=== PATIENT | female | born 1985 | race Caucasian/White ===

== ENCOUNTER → 2017-07-28 | Outpatient (CLI) | payer BC ==
--- NOTE | 2017-07-28 11:18 | DIAGNOSTIC IMAGING REPORT ---
ULTRASOUND LEFT CHEST WALL NONVASCULAR CLINICAL HISTORY: Lipoma. COMPARISON STUDY: No priors. FINDINGS: Real-time, grayscale, and color flow sonography of the soft tissues of the left chest wall is performed at the indicated site of interest. In the subcutaneous soft tissues of the chest wall there is a lobulated and well-circumscribed hypoechoic lesion at this site which largely blends into the surrounding subcutaneous fat. This measures 3.7 x 0.7 x 4.2 cm. No internal flow seen on color imaging. IMPRESSION: There is a lobulated well-circumscribed soft tissue lesion at the indicated site of interest which largely blends into the surrounding fat. While pathologically indeterminant the appearance is typical for lipoma. Clinical correlation will be required. Electronically signed by: Hemal Anderson M.D. 07/28/2017 11:17 AM Dictated Date/Time: 07/28/2017 11:15 AM
== END | disposition home or self-care (01) ==
LOC: C.ULTR 10:24
PROVIDERS: ATTEND Internal Medicine
DX: D17.9 Benign lipomatous neoplasm, unspecified (principal)

== ENCOUNTER → 2017-12-26 | Day surgery (SDC) | payer OTHER ==
[2017-12-25 08:42] VITALS: Ht 177.8 cm; Wt 63.6 kg
[~2017-12-26] VITALS: Ht 177.8 cm; Wt 63.6 kg
[~2017-12-26] MED LIST: ATROPINE SULFATE 0.1 MG/ML 5ML SYR IV PRN; BUPIVACAINE 0.5 % 5 MG/1 ML MPF 30ML VIAL ONE; CEFAZOLIN 2000MG IV PUSH 15 ML IV SCH; DEXAMETHASONE SOD INJ 4 MG/ML VIAL ONE; EpHEDrine SULFATE INJ 50 MG/ML AMP IV PRN; FENTANYL CITRATE INJ 50 MCG/1 ML 2 ML VIAL IV PRN; FENTANYL CITRATE INJ 50 MCG/1 ML 2 ML VIAL ONE; LACTATED RINGER'S 1000ML 1,000 ML IV SCH; LIDOCAINE HCL 2% 2 ML VIAL (20MG/ML) ONE; LIDOCAINE/EPINEPHRINE 1% 20 ML VIAL ONE; MIDAZOLAM HCL 1 MG/ML 2ML VIAL ONE; ONDANSETRON INJ 2 MG/ML 2 ML VIAL IV PRN; ONDANSETRON INJ 2 MG/ML 2 ML VIAL ONE; OXYC-57 PO; OXYCODONE/ACETAMINOPHEN 5-325 TAB PO PRN; PROPOFOL IV EMULSION 10 MG/ML 20 ML VIAL IV ONE; SODIUM CHLORIDE 0.9% 1000ML 1,000 ML IV SCH
--- NOTE | 2017-12-26 10:45 | History & Physical Bridge - SC ---
H&P Re-Evaluation Bridge Note: I have examined the patient, reviewed the History & Physical and in the interval since the performance of the History & Physical I have noted the following changes of clinical significance: No changes noted
--- NOTE | 2017-12-26 11:35 | [facility] Post Operative Brief Note ---
Immediate Operative Summary Operative Date Dec 26, 2017. Pre-Operative Diagnosis Supraumbilical Hernia, Left Chest Wall Mass Post-Operative Diagnosis same Procedure(s) Performed Open Repair of Incarcerated Supraumbilical Hernia; Left Chest Wall Mass Excision Surgeon Dr. Jessica Melton Labor Conciliator Surgeon(s) Misty Gifford PA-C Estimated Blood Loss 2cc Findings Consistent with Post-Op Diagnosis Small defect closed primarily. 4 cm subcutaneous lipoma excised. Specimens A. Supraumbilical Hernia sac B. Left Chest Wall Mass Drains None Anesthesia Type MAC Complication(s) none Disposition Accompanied Pt To Recover: no Disposition: Recovery Room / PACU
--- NOTE | 2017-12-26 11:41 | [facility] Operative Report ---
Operative Report Operative Date Dec 26, 2017. Pre-Operative Diagnosis Supraumbilical Hernia, Left Chest Wall Mass Post-Operative Diagnosis same Procedure(s) Performed Open Repair of Incarcerated Supraumbilical Hernia; Left Chest Wall Mass Excision Surgeon Dr. Jessica Melton Chinese Instructor Surgeon(s) Misty Gifford PA-C Estimated Blood Loss 2cc Findings Small defect closed primarily. 4 cm subcutaneous lipoma excised. Specimens A. Supraumbilical Hernia sac B. Left Chest Wall Mass Drains None Anesthesia Type MAC Complication(s) none Disposition no Recovery Room / PACU Indications 32-year-old female with a small but symptomatic incarcerated supraumbilical hernia as well as a left chest wall lipoma, plan for repair of supraumbilical hernia and excision of left chest wall mass. The risks of the procedure were discussed, all questions were answered, and the patient agreed to proceed with surgery as planned. Description of Procedure The patient was properly identified, consented, and taken to the operating room where she was placed in the supine position. Monitored anesthesia care was induced. SCDs and a safety belt were placed. Preoperative antibiotics were administered. The patient's abdomen and lower left chest were prepped and draped in the standard sterile fashion. Surgical timeout was performed and all parties were in agreement that this was the correct patient and procedure to be performed and we continued as planned. A transverse incision was made above the umbilicus overlying the palpable hernia and deepened down to the fascia with blunt dissection. A 1 cm incarcerated and strangulated piece of preperitoneal fat was identified and was excised and passed off the table as specimen. A 7 mm fascial defect was encountered. The fascia anteriorly and posteriorly was cleared of investing tissue for several centimeters. Hemostasis was achieved within the wound. The hernia defect was closed primarily with interrupted 0 Nurolon sutures. The wound was irrigated and hemostasis confirmed. Local anesthetic was injected in the fascia and along the skin incision. The skin was closed with interrupted 3-0 Vicryl deep dermal sutures, followed by 4-0 Monocryl running subcuticular suture. Dermabond was placed over the wound. Attention then turned to the left chest wall soft tissue mass. Local anesthetic was injected along the skin incision. A transverse incision was made overlying the mass and deepened down through the subcutaneous tissue with electrocautery. The mass was circumferentially dissected, excised, and passed off the table as specimen. The mass appeared to be a benign lipoma and was approximately 4 cm in size. The wound was irrigated and hemostasis was confirmed. The skin was closed with interrupted 3-0 Vicryl deep dermal sutures , followed by 4-0 Monocryl running subcuticular suture. Dermabond was placed over the wound. Anesthesia was ceased in the operating room and the patient was taken to the PACU where she recovered without apparent incident. All sponge, instrument and needle counts were correct at the conclusion of the procedure. The patient tolerated the procedure well. The physician's assistant brand manager was present and scrubbed for the entirety of the case. She was essential and positioning the patient, prepping and draping, retraction and exposure, repair the hernia, excision of the lipoma, closure of the incisions, and placement of the dressings. I attest to the content of the Intraoperative Record and any orders documented therein. Any exceptions are noted below.
[2017-12-26 11:45] VITALS: TEMP 36.4
--- NOTE | 2017-12-26 11:49 | Discharge Instructions-SurgCtr ---
Discharge Instructions Date of Service Dec 26, 2017. Visit Reason for Visit: Supraumbilical Hernia; Left Chest Wall Lipoma Discharge Discharge Diagnosis / Problem: Supraumbilical Hernia; Left Chest Wall Lipoma Discharge Goals Goal(s): Decrease discomfort, Improve function Activity Recommendations Activity Limitations: as noted below Lifting Limitations: no more than 10 pounds Exercise/Sports Limitations: until after follow-up appointment May Resume Sexual Activity: after follow-up appointment Shower/Bathe: tomorrow Driving or Machine Use: resume 1 day after discharge Anesthesia . Post Anesthesia Instructions: If you have had General Anesthesia or IV Sedation: * Do not drive today. * Resume driving when surgeon permits. * Do not make important decisions or sign legal documents today. * Call surgeon for: 1. Temperature elevations greater than 101 degrees F. 2. Uncontrollable pain. 3. Excessive bleeding. 4. Persistent nausea and vomiting. 5. Medication intolerance (nausea, vomiting or rash). * For nausea and vomiting use only clear liquids such as: tea, soda, bouillon until nausea subsides, then gradually increase diet as tolerated. * If you have any concerns or questions, call your surgeon's office. If physician is unavailable and it is an emergency, call 911 or go to the nearest emergency room. . Instructions / Follow-Up Instructions / Follow-Up You have surgical glue, Dermabond, over your incisions. You may shower tomorrow , but please do not soak or scrub your incisions. Please follow-up with Dr. Melton in the [facility] Surgery [facility] in 1-2 weeks. Please call the office at [phone] to make an appointment if you do not have one already. Please call the office with any questions or concerns. Diet Recommendations Home Diet: no limitations Procedures Procedures Performed: Open Repair of Incarcerated Supraumbilical Hernia; Left Chest Wall Mass Excision Pending Studies Studies pending at discharge: yes List of pending studies: Pathology report. Medical Emergencies . Who to Call and When: Medical Emergencies: If at any time you feel your situation is an emergency, please call 911 immediately. . Non-Emergent Contact Non-Emergency issues call your: Primary Care Provider, Surgeon Call Non-Emergent contact if: temperature is above 101.5, your pain is not controlled, wound has increased drainage, wound has increased redness . . "Provider Documentation" section prepared by Misty Gifford. .
[2017-12-26 12:22] VITALS: BP 103/69; PULSE 62; O2SAT 100
--- NOTE | 2017-12-26 12:35 | Anesthesia Progress Nt - [facility] ---
Anesthesia Post Op Note Date & Time Dec 26, 2017 at 12:35 Vital Signs Pain Intensity: 0 Vital Signs Past 12 Hours Date Time Temp Pulse Resp B/P (MAP) Pulse Ox O2 Delivery O2 Flow Rate FiO2 12/26/17 12:22 62 16 103/69 (80) 100 Room Air 12/26/17 11:45 36.4 70 16 104/62 (76) 100 Room Air 12/26/17 09:42 36 89 20 118/79 (92) 100 Room Air Notes Mental Status: alert / awake / arousable, participated in evaluation Pt Amnestic to Procedure: Yes Nausea / Vomiting: adequately controlled Pain: adequately controlled Airway Patency, RR, SpO2: stable & adequate BP & HR: stable & adequate Hydration State: stable & adequate Anesthetic Complications: no major complications apparent
== END | disposition home or self-care (01) ==
LOC: X.SURG 09:30
PROVIDERS: ATTEND Surgery
DX: K43.6 Other and unspecified ventral hernia with obstruction, without gangrene (principal); D17.79 Benign lipomatous neoplasm of other sites; K21.9 Gastro-esophageal reflux disease without esophagitis; Z83.49 Family history of other endocrine, nutritional and metabolic diseases; Z82.49 Family history of ischemic heart disease and other diseases of the circulatory system